=== PATIENT | male | born 1980 | race American Indian/Alaskan Native ===

== ENCOUNTER 2019-03-25 19:14 | Emergency (ER) | payer SELFPAY ==
--- NOTE | 2019-03-25 21:27 | Event Note ---
ED Screening Note Date of service: 03/25/19 Time: 21:23 ED Screening Note: This is a 38 y.o. M. that presents to the ER with sore throat and body aches for 2 weeks. This initial assessment/diagnostic orders/clinical plan/treatment(s) is/are subject to change based on patients health status, clinical progression and re- assessment by fellow clinical providers in the ED. Further treatment and workup at subsequent clinical providers discretion. Patient/guardian urged not to elope from the ED as their condition may be serious if not clinically assessed and managed. Initial orders include: Rapid strep
[2019-03-25] MEDS ORDERED: KETOROLAC 30 MG/1 ML INJ IV ONE (21:56)
[2019-03-25] MEDS ORDERED: dexAMETHasone 20 MG/5 ML VIAL IV ONE (21:56)
[2019-03-25 22:53] LABS: Basophils # (Auto) 0.1 K/mm3 (0.0-0.1); Basophils % (Auto) 0.8 % (0.0-1.8); Eosinophils # (Auto) 0.2 K/mm3 (0.0-0.4); Eosinophils % (Auto) 1.8 % (0.0-4.3); Hematocrit 42.5 % (35.5-45.6); Hemoglobin 14.3 gm/dl (11.8-15.2); Lymphocytes % (Auto) 42.9 % (13.4-35.0); Mean Corpuscular HGB Conc 34 % (32-34); Mean Corpuscular Volume 90 fl (84-94); Monocytes # (Auto) 0.8 K/mm3 (0.0-0.8); Platelet Count 180 K/mm3 (140-440); Red Blood Count 4.72 M/mm3 (3.65-5.03); Red Cell Distribution Width 13.7 % (13.2-15.2)
[2019-03-25 23:21] LABS: Alanine Aminotransferase 18 units/L (7-56); Albumin 4.1 g/dL (3.9-5); BUN/Creatinine Ratio 7; Blood Urea Nitrogen 8 mg/dL (9-20); Calcium 9.1 mg/dL (8.4-10.2); Hemolysis Index 7
[2019-03-25 23:39] LABS: Bilirubin,Urine NEG (Negative); Blood,Urine NEG (Negative); Color,Urine Yellow (Yellow); Mucus,Urine FEW /HPF; Protein,Urine <15 mg/dL mg/dL (Negative)
[2019-03-26] MEDS ORDERED: AZITHROMYCIN 250 MG TAB PO ONE (00:27)
[2019-03-26] MEDS ORDERED: cefTRIAXone/NS 1 GM/50 ML 1 GM/50 ML BAG IV ONE (00:27)
--- NOTE | 2019-03-26 01:05 | XRay Report ---
CHEST 2 VIEWS INDICATION / CLINICAL INFORMATION: cough. COMPARISON: 10/12/2007 FINDINGS: SUPPORT DEVICES: None. HEART / MEDIASTINUM: No significant abnormality. LUNGS / PLEURA: No significant pulmonary or pleural abnormality. No pneumothorax. No evidence of pneu monia. ADDITIONAL FINDINGS: No significant additional findings. IMPRESSION: 1. No acute findings. No interval change. Signer Name: Rayna Guevara MD Signed: 03/26/2019 1:00 AM Workstation Name: [id number]
--- NOTE | 2019-03-26 01:21 | Emergency Department Report ---
ED General Adult HPI - General Chief complaint: Neck Pain/Injury Stated complaint: LT SIDE BODY AND THROAT PAIN Time Seen by Provider: 03/25/19 21:22 Source: patient Mode of arrival: Ambulatory Limitations: No Limitations - History of Present Illness Initial comments: Patient is a 38-year-old -[place] male with no past medical history presents to the ED with complaint of acute onset persistent sore throat, dysphagia, low back pain, his body aches and pains, dysuria, urinary frequency and urgency and then noticed that for the last 2 weeks. Patient denies dizziness, abdominal pain, chest pain, syncope, diarrhea, nausea, vomiting, hematuria, testicular pain or fever and chills. Patient states that in the last 2 days his symptoms have worsened. MD Complaint: Sore throat; Body aches; dysuria, nasal congestion -: Gradual, week(s) (2) Location: mouth, chest, genitals Radiation: non-radiation Severity scale (0 -10): 6 Quality: aching, sharp Consistency: constant Improves with: none Worsens with: none Associated Symptoms: cough, headaches, loss of appetite, malaise. denies: denies other symptoms, confusion, chest pain, diaphoresis, fever/chills, nausea/vomiting, rash, seizure, shortness of breath, syncope, weakness, other Treatments Prior to Arrival: none - Related Data Previous Rx's Medication Instructions Recorded Last Taken Type Ibuprofen [Motrin] 800 mg PO Q8HR PRN #24 tablet 03/26/19 Unknown Rx Lidocaine Viscous 2% 10 ml PO Q6H PRN #120 ml 03/26/19 Unknown Rx cephALEXin [Keflex] 500 mg PO Q6HR #40 capsule 03/26/19 Unknown Rx Allergies Allergy/AdvReac Type Severity Reaction Status Date / Time No Known Allergies Allergy Verified 03/26/19 00:39 ED Review of Systems ROS: Stated complaint: LT SIDE BODY AND THROAT PAIN Other details as noted in HPI Constitutional: denies: chills, fever Eyes: denies: eye pain, eye discharge, vision change ENT: throat pain, congestion. denies: ear pain Respiratory: cough. denies: shortness of breath, wheezing Cardiovascular: denies: chest pain, palpitations Endocrine: no symptoms reported Gastrointestinal: denies: abdominal pain, nausea, diarrhea Genitourinary: dysuria, frequency, discharge. denies: urgency Musculoskeletal: back pain, arthralgia, myalgia. denies: joint swelling Skin: denies: rash, lesions Neurological: denies: headache, weakness, paresthesias Psychiatric: denies: anxiety, depression Hematological/Lymphatic: denies: easy bleeding, easy bruising ED Past Medical Hx - Social History Smoking Status: Current Every Day Smoker Substance Use Type: None - Medications Home Medications: Home Medications Medication Instructions Recorded Confirmed Last Taken Type Ibuprofen [Motrin] 800 mg PO Q8HR PRN #24 tablet 03/26/19 Unknown Rx Lidocaine Viscous 2% 10 ml PO Q6H PRN #120 ml 03/26/19 Unknown Rx cephALEXin [Keflex] 500 mg PO Q6HR #40 capsule 03/26/19 Unknown Rx ED Physical Exam - General Limitations: No Limitations General appearance: alert, in no apparent distress - Head Head exam: Present: atraumatic, normocephalic, normal inspection - Eye Eye exam: Present: normal appearance, PERRL, EOMI Pupils: Present: normal accommodation - ENT ENT exam: Present: mucous membranes moist, TM's normal bilaterally, normal external ear exam, other (erythematous oropharynx and tonsillar areas with white exudates) - Neck Neck exam: Present: normal inspection, full ROM, lymphadenopathy. Absent: tenderness - Respiratory Respiratory exam: Present: normal lung sounds bilaterally. Absent: respiratory distress, wheezes, chest wall tenderness, accessory muscle use, decreased breath sounds - Cardiovascular Cardiovascular Exam: Present: normal rhythm, bradycardia, normal heart sounds. Absent: systolic murmur, diastolic murmur, rubs, gallop - GI/Abdominal GI/Abdominal exam: Present: soft, normal bowel sounds. Absent: distended, tenderness, guarding, hyperactive bowel sounds, hypoactive bowel sounds, organomegaly - External exam: Present: other (deferred, patient declined) - Extremities Exam Extremities exam: Present: normal inspection, full ROM, normal capillary refill - Back Exam Back exam: Present: normal inspection, full ROM. Absent: tenderness, CVA tenderness (L), muscle spasm, paraspinal tenderness - Neurological Exam Neurological exam: Present: alert, oriented X3, CN II-XII intact, normal gait, reflexes normal - Psychiatric Psychiatric exam: Present: normal affect, normal mood - Skin Skin exam: Present: warm, dry, intact, normal color. Absent: rash ED Course Vital Signs 03/25/19 19:40 Temperature 98.1 F Pulse Rate 57 L Respiratory 20 Rate Blood Pressure 157/89 O2 Sat by Pulse 98 Oximetry ED Medical Decision Making - Lab Data Result diagrams: 03/25/19 22:23 03/25/19 22:23 - Radiology Data Radiology results: report reviewed, image reviewed Chest x-ray shows no acute cardiopulmonary abnormalities or pneumonitis. - Medical Decision Making This is a 38-year-old male who presented to the ED with persistent sore throat, urinary frequency and urgency, dysuria, and penile discharge as well as nasal and sinus congestion and diffuse body aches and pains. In the ED, patient is alert and oriented 3 and is not in an distress. Patient was treated for pain in the ED and chest x-ray shows no acute cardiopulmonary abnormalities or pneumonitis. Urinalysis is significant for urinary tract infection which in a male patient of his age is slightly due to as to the due to Chlamydia or gonorrhea. Rapid strep test is negative. Other lab test results are unremarkable. Patient was also given Rocephin 1 g IV and azithromycin 1 g by mouth 1. Patient was discharged home on medications and advised to follow-up with [facility] for further evaluation and STD testing. Patient was advised to return to the ED immediately if symptoms get worse. - Differential Diagnosis acute pharyngitis; STD; Acute URI; Flu like symptoms Critical care attestation.: If time is entered above; I have spent that time in minutes in the direct care of this critically ill patient, excluding procedure time. ED Disposition Clinical Impression: Acute upper respiratory infection, Acute urinary tract infection, STD (sexually transmitted disease) Acute pharyngitis Qualifiers: Pharyngitis/tonsillitis etiology: other specified organisms Qualified Code(s): J02.8 - Acute pharyngitis due to other specified organisms Disposition: DC-01 TO HOME OR SELFCARE Is pt being admited?: No Does the pt Need Aspirin: No Condition: Stable Instructions: Sexually Transmitted Diseases (ED), Pharyngitis (ED), Urinary Tract Infection in Men (ED) Additional Instructions: The medications with food, drink plenty of fluids and follow-up with the primary care physician in 7-10 days for reevaluation. Consider following up with [facility] for further tests will either STDs including HIV. Please inform his sexual partner of the diagnosis and encouraged her to go to the health department for further testing and treatment. Return to the ED immediately if symptoms get worse. Prescriptions: cephALEXin [Keflex] 500 mg PO Q6HR #40 capsule Lidocaine Viscous 2% 10 ml PO Q6H PRN #120 ml PRN Reason: Pain , Severe (7-10) Ibuprofen [Motrin] 800 mg PO Q8HR PRN #24 tablet PRN Reason: Pain , Severe (7-10) Referrals: [facility] [Outside] - 3-5 Days Time of Disposition: 01:22 Print Language: BELARUSIAN
[2019-03-26 04:35] VITALS: BP 134/80
== END 2019-03-26 02:03 | disposition home or self-care (01) ==
LOC: ED 19:14
DX: J06.9 Acute upper respiratory infection, unspecified (principal); N39.0 Urinary tract infection, site not specified; A64 Unspecified sexually transmitted disease; F17.200 Nicotine dependence, unspecified, uncomplicated; Z79.899 Other long term (current) drug therapy
CPT/HCPCS: 36415; 71046; 80053; 81001; 85025; 87086; 87116; 87430; 96365; 96375; 99284; J0696; J1100; J1885

== ENCOUNTER 2019-09-03 20:40 | Emergency (ER) | payer SELFPAY ==
[2019-09-03 20:51] VITALS: BP 129/92
[2019-09-03] MEDS ORDERED: MORPHINE 4 MG/1 ML INJ IV ONE (21:00)
[2019-09-03] MEDS ORDERED: diphenhydrAMINE 50 MG/ML VIAL IV ONE (21:01)
--- NOTE | 2019-09-03 21:05 | Emergency Department Report ---
ED General Adult HPI - General Chief complaint: Extremity Injury, Upper Stated complaint: POSS ALLERGIC REACTION/R ARM/L EYE EDEMA/ Time Seen by Provider: 09/03/19 20:59 Source: patient Mode of arrival: Ambulatory Limitations: No Limitations - History of Present Illness Initial comments: 39-year-old -[place] male presents to the emergency room complaining of right hand and left eye swelling. Patient states he was working the yard yesterday and unsure if he was bitten by an insect. Patient states that the right hand swelling has increased up to his mid right arm. Patient states that the pains a 9 out of 10. Patient states that the swelling in his left eye is around his eyelid. Patient denies any drainage from the eye. Patient reports no past medical history currently takes no medications on a daily basis and has no known drug allergies. Onset/Timin -: days(s) Location: eyes (left), right, upper extremity Severity scale (0 -10): 9 Quality: aching, sharp Consistency: constant Improves with: none Worsens with: none Associated Symptoms: denies other symptoms Treatments Prior to Arrival: none - Related Data Previous Rx's Medication Instructions Recorded Last Taken Type Ibuprofen [Motrin] 800 mg PO Q8HR PRN #24 tablet 03/26/19 Unknown Rx Lidocaine Viscous 2% 10 ml PO Q6H PRN #120 ml 03/26/19 Unknown Rx cephALEXin [Keflex] 500 mg PO Q6HR #40 capsule 03/26/19 Unknown Rx Acetaminophen/Codeine [Tylenol 1 tab PO Q6H PRN #12 tab 09/03/19 Unknown Rx /Codeine # 3 tab] Clindamycin [Clindamycin CAP] 300 mg PO Q8H 10 Days #30 cap 09/03/19 Unknown Rx Ibuprofen [Motrin 600 MG tab] 600 mg PO Q8H PRN #15 tablet 09/03/19 Unknown Rx Allergies Allergy/AdvReac Type Severity Reaction Status Date / Time No Known Allergies Allergy Verified 03/26/19 00:39 ED Review of Systems ROS: Stated complaint: POSS ALLERGIC REACTION/R ARM/L EYE EDEMA/ Other details as noted in HPI Comment: All other systems reviewed and negative ED Past Medical Hx - Past Medical History Previous Medical History?: No - Surgical History Past Surgical History?: No - Social History Smoking Status: Current Every Day Smoker Substance Use Type: Alcohol - Medications Home Medications: Home Medications Medication Instructions Recorded Confirmed Last Taken Type Ibuprofen [Motrin] 800 mg PO Q8HR PRN #24 tablet 03/26/19 Unknown Rx Lidocaine Viscous 2% 10 ml PO Q6H PRN #120 ml 03/26/19 Unknown Rx cephALEXin [Keflex] 500 mg PO Q6HR #40 capsule 03/26/19 Unknown Rx Acetaminophen/Codeine [Tylenol 1 tab PO Q6H PRN #12 tab 09/03/19 Unknown Rx /Codeine # 3 tab] Clindamycin [Clindamycin CAP] 300 mg PO Q8H 10 Days #30 cap 09/03/19 Unknown Rx Ibuprofen [Motrin 600 MG tab] 600 mg PO Q8H PRN #15 tablet 09/03/19 Unknown Rx ED Physical Exam - General Limitations: No Limitations General appearance: alert, in no apparent distress - Head Head exam: Present: atraumatic, normocephalic - Expanded Eye Exam Expanded Eyelids: Erythema: Left, Swelling: Left - ENT ENT exam: Present: mucous membranes moist - Neck Neck exam: Present: normal inspection, full ROM - Expanded Upper Extremity Exam Right Forearm Wrist exam: Present: full ROM, tenderness, swelling, erythema Hand Wrist exam: Present: tenderness, swelling, erythema - Back Exam Back exam: Present: normal inspection, full ROM - Neurological Exam Neurological exam: Present: alert, oriented X3, normal gait - Psychiatric Psychiatric exam: Present: normal affect, normal mood - Skin Skin exam: Present: warm, dry, intact, normal color. Absent: rash ED Course Vital Signs 09/03/19 20:49 Temperature 98.0 F Pulse Rate 97 H Respiratory 16 Rate Blood Pressure 129/92 O2 Sat by Pulse 99 Oximetry ED Medical Decision Making - Lab Data Result diagrams: 09/03/19 21:45 - Medical Decision Making 39-year-old -Ben[place] male presents to the emergency room complaining of right hand and left eye swelling. Patient states he was working the yard yesterday and unsure if he was bitten by an insect. Patient states that the right hand swelling has increased up to his mid right arm. Patient states that the pains a 9 out of 10. Patient states that the swelling in his left eye is around his eyelid. Patient denies any drainage from the eye. Patient reports no past medical history currently takes no medications on a daily basis and has no known drug allergies. CBC, CMP, CK, ESR, CRP, normal saline, IV clindamycin 900 mg, Benadryl 25 mg IV, morphine [address] Rob Vaz came to evaluate patient. He agrees with my treatment plan for placing patient on clindamycin 300 mg 3 times daily for 10 days. Patient can take ibuprofen or Tylenol for pain management. Critical care attestation.: If time is entered above; I have spent that time in minutes in the direct care of this critically ill patient, excluding procedure time. ED Disposition Clinical Impression: Cellulitis of hand, right Disposition: DC-01 TO HOME OR SELFCARE Is pt being admited?: No Does the pt Need Aspirin: No Condition: Stable Instructions: Cellulitis (ED) Additional Instructions: Complete antibiotics as prescribed. Take pain medication as needed. Follow-up with a primary care provider if your symptoms persist or gets worse. Return back to the emergency room if you develop a fever or worsening swelling and pain. Prescriptions: Clindamycin [Clindamycin CAP] 300 mg PO Q8H 10 Days #30 cap Ibuprofen [Motrin 600 MG tab] 600 mg PO Q8H PRN #15 tablet PRN Reason: Pain Acetaminophen/Codeine [Tylenol /Codeine # 3 tab] 1 tab PO Q6H PRN #12 tab PRN Reason: Pain , Severe (7-10) Referrals: PRIMARY CARE, [Primary Care Provider] - 3-5 Days ABELARDO HARRIS MD [Staff Physician] - 3-5 Days Forms: Work/School Release Form(ED)
[2019-09-03 22:19] LABS: Basophils # (Auto) 0.1 K/mm3 (0.0-0.1); Basophils % (Auto) 0.5 % (0.0-1.8); Eosinophils % (Auto) 0.3 % (0.0-4.3); Hematocrit 43.2 % (35.5-45.6); Hemoglobin 14.6 gm/dl (11.8-15.2); Lymphocytes # (Auto) 2.4 K/mm3 (1.2-5.4); Lymphocytes % (Auto) 18.1 % (13.4-35.0); Mean Corpuscular HGB Conc 34 % (32-34); Mean Corpuscular Volume 90 fl (84-94); Monocytes # (Auto) 1.6 K/mm3 (0.0-0.8); Monocytes % (Auto) 12.5 % (0.0-7.3); Platelet Count 205 K/mm3 (140-440); Red Blood Count 4.83 M/mm3 (3.65-5.03); Red Cell Distribution Width 13.9 % (13.2-15.2)
[2019-09-03 22:45] LABS: Erythrocyte Sedimentation Rate 60 mm/Hr (0-20)
[2019-09-03 22:54] LABS: BUN/Creatinine Ratio 12; Blood Urea Nitrogen 12 mg/dL (9-20); Calcium 9.3 mg/dL (8.4-10.2); Hemolysis Index 1
[2019-09-03 22:56] LABS: C-Reactive Protein 14.8 mg/dL (0.00-1.30)
== END 2019-09-03 23:11 | disposition home or self-care (01) ==
LOC: ED 20:40
DX: L03.113 Cellulitis of right upper limb (principal); F17.200 Nicotine dependence, unspecified, uncomplicated; Z79.899 Other long term (current) drug therapy
CPT/HCPCS: 36415; 80048; 82550; 85025; 85652; 86140; 96365; 96375; 99283; J1200; J2270